=== PATIENT | female | born 1945 | race Caucasian/White ===

== ENCOUNTER 2019-02-28 04:00 | Emergency (ER) | payer MEDICARE, MEDICAID ==
[~2019-02-28] VITALS: Ht 142.2 cm; Wt 67.1 kg
[2019-02-28 04:07] VITALS: BP 152/80
--- NOTE | 2019-02-28 04:07 | NUR ---
PT AMBULATED SELF WITH DAUGHTER TO BED #5
--- NOTE | 2019-02-28 04:17 | NUR ---
73 Y/O FEMALE BIB DAUGHTER. PRESENTS TO ED WITH CHIEF COMPLAINT OF HIGH BLOOD PRESSURE. DAUGHTER STATES PT HAS BEEN HAVING ELEVATED BP READINGS ALL DAY YESTERDAY. PT TOOK RX BP MEDICATIONS AND WAITED 45 MINS WITH NO SIGNIFICANT CHANGE IN BP READINGS. PT DENIES ANY SOB OR CHEST PAIN. PT C/O HEADACHE 02/10; DENIES TAKING ANY MEDICATIONS TO HELP ALLEVIATE PAIN. PT VSS. ERMD AWARE. WILL CONTINUE TO MONITOR.
[2019-02-28] MEDS ORDERED: KETOROLAC 60 MG/2 ML VIAL IM ONE (04:35)
[2019-02-28 04:40] VITALS: BP 152/80
--- NOTE | 2019-02-28 04:40 | NUR ---
PT DISCHARGED WITH PAPERWORK. RX MOTRIN FOR PAIN. EDUCATED PT REGARDING MEDICATIONS AND S/E. EDUCATED PT REGARDING NONPHARM INTERVENTIONS FOR PAIN. EDUCATED PT REGARDING D/C DIAGNOSIS AND INSTRUCTIONS. PT VERBALIZED UNDERSTANDING OF TEACHING. TOLD PT TO FOLLOW UP WITH PCP AND WHEN TO RETURN TO ED. PT VSS. ALL QUESTIONS ANSWERED.
== END 2019-02-28 04:40 | disposition home or self-care (01) ==
LOC: MED 04:00
DX: I10 Essential (primary) hypertension (principal); F32.9 Major depressive disorder, single episode, unspecified; E78.5 Hyperlipidemia, unspecified; Z98.890 Other specified postprocedural states
CPT/HCPCS: 96372; 99283; J1885

== ENCOUNTER 2019-03-14 16:33 | Emergency (ER) | payer OTHER, MEDICAID ==
[~2019-03-14] VITALS: Ht 154.9 cm; Wt 68.0 kg
[2019-03-14 16:36] VITALS: BP 113/57
--- NOTE | 2019-03-14 16:50 | NUR ---
20 G INSERTED INTO PTS L AC. LABS DRAWN BEDSIDE
--- NOTE | 2019-03-14 16:51 | NUR ---
PER EMS, PT BIBA FROM HOME C/O L ARM NUMBNESS X 3 HOURS. 12 LEAD SHOWS NEW ONSET AFIB PT IS GREEK SPEAKING, LANGUAGE BARRIER. WILL ASSESS PT WITH [employer] BS 181 IN FIELD PMH- HTN AND HIGH CHOLESTEROL
--- NOTE | 2019-03-14 16:52 | NUR ---
PERIPHERAL EDEMA NOTED TO BILATERAL LOWER EXTREMETIES. PALPABLE PEDAL PULSES. CAP REFILL <3 SECONDS.
--- NOTE | 2019-03-14 17:00 | NUR ---
PTS SON AT BEDSIDE
--- NOTE | 2019-03-14 17:02 | NUR ---
DR MUELLER AT BEDSIDE
--- NOTE | 2019-03-14 17:04 | NUR ---
PER DR MUELLER TRANSLATION, PTS FAMILY REPORTED THAT PTS BP WAS LOWER THAN 100 SYSTOLIC WHICH PROMPTED FAMILY TO CALL 911. PT USUALLY TAKES NORVASC FOR HTN BUT DID NOT TAKE IT TODAY. PT DENIES CP, COUGH, DIZZINESS, FEVER, CHILLS. STATES C/O L HAND NUMBNESS AT THIS TIME
[2019-03-14 17:30] LABS: BASOPHILS # (AUTO) 0.1 K/uL (0.00-0.22); BASOPHILS % (AUTO) 1.1 % (0.0-2.0); EOSINOPHILS # (AUTO) 0.4 K/uL (0-0.4); EOSINOPHILS % (AUTO) 8.2 % (0.0-4.0); HEMATOCRIT 35.4 % (36-48); HEMOGLOBIN 12.1 g/dL (12.0-16.0); LYMPHOCYTES # (AUTO) 2.4 K/uL (2.5-16.5); LYMPHOCYTES % (AUTO) 44.7 % (20.5-51.1); MEAN CORPUSCULAR HEMOGLOBIN 32 pg (27-31); MEAN CORPUSCULAR HGB CONC 34 g/dL (33-37); MEAN CORPUSCULAR VOLUME 93.2 fL (80-94); MONOCYTES # (AUTO) 0.6 K/uL (0.8-1.0); NEUTROPHILS # (AUTO) 1.8 K/uL (1.8-7.7); PLATELET COUNT (AUTO) 277 K/uL (140-450); RED BLOOD CELL COUNT(AUTO) 3.79 MIL/uL (4.20-5.40); WHITE BLOOD COUNT (AUTO) 5.3 K/uL (4.8-10.8)
--- NOTE | 2019-03-14 17:33 | NUR ---
PT ASSISTED ONTO BED LINARES, URINE COLLECTED
[2019-03-14 18:06] LABS: ANION GAP 9.3 (8-16); CARBON DIOXIDE 30.7 mmol/L (21-32); CHLORIDE 91 mmol/L (98-107); CREATININE 0.7 mg/dL (0.6-1.3); GLUCOSE 100 mg/dL (74-106); SODIUM SERUM 127 mmol/L (136-145); TOTAL BILIRUBIN 0.3 mg/dL (0.0-1.0); UREA NITROGEN, BLOOD 10 mg/dL (7-18)
[2019-03-14 18:07] LABS: ALBUMIN 3.4 g/dL (3.4-5.0); ASPARTATE AMINOTRANSFERASE 21 U/L (15-37)
--- NOTE | 2019-03-14 18:45 | NUR ---
VS STABLE AT THIS TIME.
[2019-03-14 19:04] VITALS: BP 132/55
--- NOTE | 2019-03-14 19:04 | NUR ---
PT IS NOT HOMELESS, HOMELESS ASSESSMENT NOT DONE
[2019-03-14 19:05] LABS: APPEARANCE,URINE CLEAR (CLEAR); BILIRUBIN,URINE NEGATIVE (NEGATIVE); COLOR,URINE YELLOW (YELLOW); LEUKOCYTE ESTERASE ,URINE NEGATIVE (NEGATIVE); NITRITE, URINE NEGATIVE (NEGATIVE); UGLUCOSE NEGATIVE (NEGATIVE)
--- NOTE | 2019-03-14 19:05 | NUR ---
Patient discharged with v/s stable. Written and verbal after care instructions given and explained. Patient verbalized understanding. Ambulatory with steady gait. All questions addressed prior to discharge. Advised to follow up with PMD.
[2019-03-14 19:06] LABS: BLOOD, URINE NEGATIVE (NEGATIVE)
== END 2019-03-14 18:57 | disposition home or self-care (01) ==
LOC: MED 16:33
DX: I95.9 Hypotension, unspecified (principal); Z00.01 Encounter for general adult medical examination with abnormal findings; I10 Essential (primary) hypertension; F32.9 Major depressive disorder, single episode, unspecified; E78.5 Hyperlipidemia, unspecified
CPT/HCPCS: 36415; 80053; 81003; 84484; 85025; 93005; 99284

== ENCOUNTER 2019-06-24 12:42 | Emergency (ER) | payer BC, MEDICAID ==
[~2019-06-24] VITALS: Ht 144.8 cm; Wt 66.2 kg
[2019-06-24 13:02] VITALS: BP 127/68
--- NOTE | 2019-06-24 13:05 | NUR ---
74 y/o female c/o frequent urination x 1 week, episodes of incontinence, change in urine color, body aches. Denies ABD pain,n/v/d, denies blood in urine per family. Pt has increased confusion but has a HX of dementia . Pt is drinking more water than usual. ABD round, soft, non-tender to palp. Last BM 06/23/2019. Family at bedside, VSS, will continue to monitor. MEDICAL HX: HTN/DEMENTIA ALLERGIES: PCN
--- NOTE | 2019-06-24 13:28 | NUR ---
OBTAINED URINE SAMPLE.
--- NOTE | 2019-06-24 13:35 | NUR ---
DR NEWTON EVALUATING PT @ BEDSIDE
--- NOTE | 2019-06-24 14:14 | NUR ---
PT RESTING IN BED, ONE SIDE RAIL UP, VSS, WILL CONTINUE TO MONITOR
--- NOTE | 2019-06-24 15:37 | NUR ---
IV PLACED BY RN AND LABS DRAWN AT THIS TIME. URINE AT BEDSIDE
[2019-06-24 16:22] LABS: APPEARANCE,URINE CLEAR (CLEAR); BILIRUBIN,URINE NEGATIVE (NEGATIVE); BLOOD, URINE 1+ (NEGATIVE); COLOR,URINE YELLOW (YELLOW); LEUKOCYTE ESTERASE ,URINE 1+ (NEGATIVE); NITRITE, URINE NEGATIVE (NEGATIVE); UGLUCOSE NEGATIVE (NEGATIVE)
[2019-06-24 16:24] LABS: BASOPHILS # (AUTO) 0.1 K/uL (0.00-0.22); BASOPHILS % (AUTO) 1.4 % (0.0-2.0); EOSINOPHILS % (AUTO) 0.2 % (0.0-4.0); HEMATOCRIT 33.8 % (36-48); HEMOGLOBIN 11.4 g/dL (12.0-16.0); LYMPHOCYTES # (AUTO) 1.9 K/uL (2.5-16.5); LYMPHOCYTES % (AUTO) 27.5 % (20.5-51.1); MEAN CORPUSCULAR HEMOGLOBIN 30 pg (27-31); MEAN CORPUSCULAR HGB CONC 34 g/dL (33-37); MEAN CORPUSCULAR VOLUME 89.3 fL (80-94); MONOCYTES # (AUTO) 0.8 K/uL (0.8-1.0); MONOCYTES % (AUTO) 12.2 % (1.7-9.3); NEUTROPHILS # (AUTO) 4.1 K/uL (1.8-7.7); NEUTROPHILS % (AUTO) 58.7 % (42.2-75.2); PLATELET COUNT (AUTO) 267 K/uL (140-450); RED BLOOD CELL COUNT(AUTO) 3.78 MIL/uL (4.20-5.40); RED CELL DISTRIBUTION WIDTH 13.1 % (11.6-13.7); WHITE BLOOD COUNT (AUTO) 6.9 K/uL (4.8-10.8)
--- NOTE | 2019-06-24 16:31 | NUR ---
SITTING UPRIGHT AWAKE AND ALERT. RR EVEN AND UNLABORED. REMAINS ON MONITOR. WILL CONTINUE TO MONITOR
[2019-06-24 16:51] LABS: WBC,URINE 20-60 /HPF (0-5)
--- NOTE | 2019-06-24 17:00 | NUR ---
REPORT RECEIVED FROM ORION FARRAR. ASSUMMED CARE OF PATIENT AT THIS TIME. PATIENT STABLE AT TIME OF TRANSFER OF CARE.
[2019-06-24 17:04] LABS: PROTHROMBIN TIME 10.2 secs (10.8-13.4)
[2019-06-24 17:10] LABS: ANION GAP 9.3 (8-16); ASPARTATE AMINOTRANSFERASE 21 U/L (15-37); CARBON DIOXIDE 29.6 mmol/L (21-32); CHLORIDE 94 mmol/L (98-107); CREATININE 0.4 mg/dL (0.6-1.3); GLUCOSE 100 mg/dL (74-106); SODIUM SERUM 130 mmol/L (136-145); TOTAL BILIRUBIN 0.4 mg/dL (0.0-1.0); UREA NITROGEN, BLOOD 6 mg/dL (7-18)
[2019-06-24 17:15] LABS: POTASSIUM 2.9 mmol/L (3.5-5.1)
--- NOTE | 2019-06-24 17:15 | NUR ---
CRITICAL POTASSIUM 2.9, REPORTED TO DR NEWTON
[2019-06-24] MEDS ORDERED: POTASSIUM CHLORIDE 10 MEQ TABER PO ONE (17:20)
--- NOTE | 2019-06-24 17:38 | NUR ---
SPOKE WITH PATIENTS DAUGHTER AND INFORMED HER THAT THE PATIENT IS STABLE AT THIS TIME. SHE STATED SHE WOULD BE COMING TO THE ER TO SEE HER.
--- NOTE | 2019-06-24 18:19 | NUR ---
spoke to son genevieve on phone who stated he would be here to pick her up in 15 minutes.
--- NOTE | 2019-06-24 19:25 | NUR ---
RECEIVED REPORT FROM CHARAN RESENDEZ
[2019-06-24 19:50] VITALS: BP 127/68
--- NOTE | 2019-06-24 19:51 | NUR ---
Patient discharged with v/s stable. Written and verbal after care instructions given and explained. Patient verbalized understanding. Ambulatory with SON. All questions addressed prior to discharge. Advised to follow up with PMD.
== END 2019-06-24 19:51 | disposition home or self-care (01) ==
LOC: MED 12:42
DX: B34.9 Viral infection, unspecified (principal); E87.6 Hypokalemia; I10 Essential (primary) hypertension; E78.00 Pure hypercholesterolemia, unspecified; F03.90 Unspecified dementia, unspecified severity, without behavioral disturbance, psychotic disturbance, mood disturbance, and anxiety; Z86.79 Personal history of other diseases of the circulatory system
CPT/HCPCS: 36415; 71045; 80053; 81001; 82550; 82553; 82948; 83605; 83880; 84484; 85025; 85610; 85730; 87040; 87086; 93005; 99285; Q0092